=== PATIENT | female | born 1975 | race Caucasian/White ===

== ENCOUNTER 2022-04-08 05:54 | Day surgery (SDC) | payer OTHER ==
[~2022-04-08 05:54] MED LIST: Sodium Chloride 0.9% 10 ML Syringe FLUSH SCH
[2022-04-08] MEDS ORDERED: fentaNYL 100 MCG/2 ML SDV IV ONE (05:55)
[2022-04-08] MEDS ORDERED: Propofol 200 MG/20 ML SDV IV ONE (05:55)
[2022-04-08] MEDS ORDERED: Midazolam 1 MG/ML 2 ML SDV IV ONE (05:55)
[2022-04-08] MEDS ORDERED: Sodium Chloride 0.9% 10 ML Syringe FLUSH PRN (06:00)
[2022-04-08] MEDS: Dextrose 5%-0.45% NaCl 1,000 ML IV SCH ×2 (06:32→08:20)
== END 2022-04-08 10:16 | disposition home or self-care (01) ==
LOC: DL.ENDO 05:54
PROVIDERS: ATTEND Internal Medicine Gastroenterology
DX: K62.5 Hemorrhage of anus and rectum (principal); N80.9 Endometriosis, unspecified; Z90.710 Acquired absence of both cervix and uterus; Z91.010 Allergy to peanuts
CPT/HCPCS: 00812; 45378; J2250; J2704; J3010; J7042